=== PATIENT | male | born 1950 | race Caucasian/White ===

== ENCOUNTER 2023-08-07 11:51 | Emergency (ER) | payer MEDICARE, OTHER, SELFPAY ==
[2023-08-07 11:51] VITALS: BMI 27.1
[2023-08-07 11:53] VITALS: BP 141/75
--- NOTE | 2023-08-07 12:04 | EDRN ---
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 Pt states he spoke with a friend who urged him to
get vaccinated so 'so I dont '
--- NOTE | 2023-08-07 12:30 | ED.GENMED ---
History of Present Illness
General
Chief Complaint: Rabies
Source: patient
Exam Limitations: none
Time Seen by Provider: 08/07/23 11:59
Nursing documentation reviewed up to this point in time: agreed with
Travel History
Have you had any contact with someone who has COVID-19?: No
Do you have any symptoms of coronavirus? Fever > 100 degrees, chills, cough, shortness of breath, sore throat, loss of taste or smell, muscle aches, or headache?: No
History of Present Illness
History of Present Illness:
Patient is 73-year-old male who presents to the ER for evaluation. Patient reports over the past week they have had a bad problem in their house and has had multiple bats in his house. He denies any actual bite but is here for rabies
immunoglobulin and vaccine. He has no physical complaints.
Review of Systems
Review of Systems
Allergies reviewed?: Yes
All Other Systems: ROS reviewed and negative except as documented in HPI and ROS
Constitutional: Reports no symptoms
Respiratory: Reports no symptoms
Cardiac: Reports no symptoms
ABD/GI: Reports no symptoms
Musculoskeletal: Reports no symptoms
Skin: Reports no symptoms
Neurological: Reports no symptoms
Psychiatric: Reports no symptoms
Phy Exam
General Physical Exam
General Presentation: no apparent distress
General age: appears stated age
General Skin: warm and dry
General Habitus: normal
General Mental: alert
General Hydration: appears well hydrated
Neurological Exam
Neurological Exam: alert and oriented x3
Musculoskeletal Exam
Musculoskeletal Exam: full ROM
Skin Exam
Skin Exam: normal color and warm/dry
Psychiatric Exam
Psychiatric Exam: normal mood/affect
Course
Orders/Labs/Results
Orders:
Orders
08/07/23 12:35
Rabies Immune Globulin/Pf [HyperRAB] 1,814 unit IM NOW STA
08/07/23 12:45
Rabies Vaccine (Pcec)/Pf [Rabavert Rabies Vacc W-Diluent] 2.5 unit IM .ONCE ONE
Vital Signs
Initial and Last Documented VS:
Initial Vital Signs
Temp Pulse Resp BP Pulse Ox
98.6 F 60 18 141/75 98
08/07/23 11:53 08/07/23 11:53 08/07/23 11:53 08/07/23 11:53 08/07/23 11:53
Last Documented Vital Signs
Temp Pulse Resp BP Pulse Ox
98.6 F 60 18 141/75 98
08/07/23 11:53 08/07/23 11:53 08/07/23 11:53 08/07/23 11:53 08/07/23 11:53
MDM/Problems Addressed
MDM/Problems Addressed:
pt presented for rabies vaccine and immunoglobin no known injury
*Critical Care Note
Total Time (30-74mins, 75-104mins- exclusive of procedures): Not Applicable
ED Attending Note
-
Portions of this chart may have been created with voice recognition software.� Occasional wrong word or��sound alike� substitutions may have occurred due to the inherent limitations of voice recognition software.
Discharge Plan
Departure
Patient Disposition: Home (Routine Discharge)
Date of Disposition: 08/07/23
Time of Disposition: 13:29
Patient with high blood pressure during this ER visit?: Yes
Condition: Fair
Covid-19: Not Applicable
Discharge Problem:
encounter for rabies vaccine , Encounter for prophylactic administration of rabies immune globulin
Stand Alone Forms: Rabies Vaccine Post Exp Dosing
Activity Restrictions/Additional Instructions:
You were here in the ER today to receive rabies vaccine and rabies immunoglobulin. You will need to return 3, 7 and 14 for rabies vaccine.
For the vaccine that you are to receive on Friday please come back to the emergency department to receive this however for the next 2 doses you may go to the infusion center. You will be given a prescription to take with you to the infusion center.
Return if any worsening of symptoms
Interventions
Interventions:
*Risk Screen - Suicide Last Done: 08/07/23 11:53
*General Assessment Last Done: 08/07/23 11:53
*Neglect/Abuse Screening Last Done: 08/07/23 11:53
ED- Fall Risk Assessment Last Done: 08/07/23 12:02
*ED COVID-19 Vaccine History Last Done: 08/07/23 11:53
*Nursing Disposition Last Done: 08/07/23 13:31
Discharge Date and Time
Discharge Date/Time: 08/07/23 13:45
[2023-08-07] MEDS: RABAVERT RABIES VACC W-DILUENT 2.5 UNIT IM (13:09)
[2023-08-07] MEDS: HyperRAB 1814 UNIT IM (13:11)
== END 2023-08-07 13:45 | disposition home or self-care (01) ==
LOC: EMR 11:51
PROVIDERS: EMERGENCY PHYSICIAN Student in an Organized Health Care Education/Training Program; FAMILY PHYSICIAN Family Medicine
DX: Z20.3 Contact with and (suspected) exposure to rabies (principal); Z23 Encounter for immunization
CPT/HCPCS: 99282; 90471; 96372; 90375; 90675

== ENCOUNTER 2023-08-21 14:31 | Outpatient (RCR) | payer MEDICARE, OTHER, SELFPAY ==
[2023-08-11 15:08] VITALS: BP 124/66
[2023-08-11] MEDS: RABAVERT RABIES VACC W-DILUENT 2.5 UNIT IM (15:41)
[2023-08-14 15:10] VITALS: BP 137/72
[2023-08-14] MEDS: RABAVERT RABIES VACC W-DILUENT 2.5 UNIT IM (15:22)
[2023-08-21 14:45] VITALS: BP 132/74
[2023-08-21] MEDS: RABAVERT RABIES VACC W-DILUENT 2.5 UNIT IM (15:01)
== END 2023-08-22 09:42 | disposition home or self-care (01) ==
LOC: OID 14:31
PROVIDERS: ATTENDING PHYSICIAN Student in an Organized Health Care Education/Training Program; FAMILY PHYSICIAN Family Medicine
DX: Z20.3 Contact with and (suspected) exposure to rabies (principal); Z23 Encounter for immunization
CPT/HCPCS: 90471; 90675

== ENCOUNTER 2024-06-28 12:58 | Emergency (ER) | payer MEDICARE, OTHER, SELFPAY ==
[2024-06-28 13:08] VITALS: BP 149/85
[2024-06-28 13:32] LABS: % Basophils 0.2 % (0-2); % Eosinophils 3.5 % (0-6); % Immature Granulocytes 0.3 % (0-0.5); % Lymphocytes 18.2 % (20.5-51.1); % Monocytes 8.5 % (1.7-9.3); % Neutrophils 69.3 % (42.2-75.2); Absolute Eosinophils 0.4 10^3/uL (0-0.7); Absolute Lymphocytes 1.8 10^3/uL (1.2-3.4); Absolute Monocytes 0.8 10^3/uL (0.1-0.6); Absolute Neutrophils 6.9 10^3/uL (1.4-6.5); Hematocrit 39.4 % (39.0-52.0); Hemoglobin 13.4 g/dL (13.0-18.0); Mean Platelet Volume 7.9 fL (7.4-10.4); Nucleated Red Blood Cells % 0 % (-); Platelet Count 183 10^3/uL (130-400); Red Blood Cell Count 4.06 10^6/uL (4.70-6.10); Red Cell Dist. Width 11.9 % (11.5-14.5); White Blood Cell Count 9.9 10^3/uL (4.8-10.8)
[2024-06-28 13:59] LABS: ALT (SGPT) 27 U/L (0-50); AST (SGOT) 25 U/L (17-59); Albumin 4.6 g/dl (3.5-5.0); Alkaline Phosphatase 74 U/L (38-126); Blood Urea Nitrogen 13 mg/dl (9-20); Calcium 9.5 mg/dl (8.4-10.2); Carbon Dioxide 29 mmol/L (22-30); Chloride 99 mmol/L (98-107); Glucose 113 mg/dl (70-99); Lipase 94 U/L (23-300); Potassium 4.4 mmol/L (3.5-5.1); Sodium 136 mmol/L (135-145); Total Bilirubin 0.6 mg/dl (0.2-1.3); Total Protein 7.3 g/dl (6.3-8.2); eGFR > 60.00
[2024-06-28] MEDS: TORADOL 15 MG IV (15:45)
--- NOTE | 2024-06-28 15:46 | ED.GENMED ---
History of Present Illness
General
Chief Complaint: Abdominal Pain
Time Seen by Provider: 06/28/24 15:07
History of Present Illness
History of Present Illness:
73-year-old male without any significant past medical history presenting to the emergency department for left-sided abdominal pain. Patient reports symptoms started yesterday. Does note history of diverticulosis and 2 episodes of diverticulitis in
the past, only requiring oral antibiotics outpatient. He feels that the pain on this episode is more severe prior. Pain is worse with any type of movement. Patient has a medical background and has concern for peritoneal signs. Denies any changes
in stool. Denies nausea or vomiting. Denies chest pain, difficulty breathing, fever. Has history of kidney stones in the past, requiring ureteral surgery. Denies additional acute medical complaints
Phy Exam
Physical Exam
Physical Exam:
General: Well-appearing, no clinical signs of dehydration, nontoxic and in no acute distress
HEENT: protecting airway
Neck: appears supple
CV: Normal heart rate
Resp: No accessory muscle use, no increased work of breathing
Abd: Soft and non-distended, moderate tenderness to left lower quadrant with voluntary guarding, no rebound
Extremities: No deformities, no swelling
Neuro: alert, no focal neurologic deficit
: deferred
Rectal: deferred
Psych: Normal affect
Skin: Intact
Course
Orders/Labs/Results
Orders:
Orders
06/28/24 13:21
Complete Blood Count/With Diff Urgent
Comprehensive Metabolic Panel Urgent
Lipase Urgent
06/28/24 15:31
CT Abd/pelvis W Iv Cont Urgent
Comment:
Reason For Exam: LLQ pain, hx diverticulitis
Ketorolac [Toradol] 15 mg IV NOW STA
CR Chest - 2 Views Urgent
Comment:
Reason For Exam: r/o free air
06/28/24 15:52
Urinalysis Reflex To Culture Urgent
Date Specimen was Collected: 06/28/24
Time Specimen was Collected: 15:37
Urine Microscopic Reflex Cult Urgent
Urine Culture Urgent
TERESA Source: U
Specimen Description:
Date Specimen was Collected: 06/28/24
Time Specimen was Collected: 15:37
06/28/24 18:27
Amoxicillin 875 mg/Clav 125 mg [Augmentin 875 mg/125 mg] 1 tablet PO NOW STA
Abnormal Lab Results
06/28/24 06/28/24
13:21 15:52
RBC 4.06 L 10^6/uL
(4.70-6.10)
MCV 97.0 H fL
(80.0-94.0)
MCH 33.0 H pg
(27.0-31.0)
Absolute Neuts (auto) 6.9 H 10^3/uL
(1.4-6.5)
Absolute Monos (auto) 0.8 H 10^3/uL
(0.1-0.6)
Lymphocytes % 18.2 L %
(20.5-51.1)
Glucose 113 H mg/dl
(70-99)
Leukocyte Esterase Rfl 1+ A
(Negative)
Urine WBC (Reflex) 40-50 A /HPF
(0-5)
Urine Bacteria (Reflex) Few A
(Negative)
06/28/24 13:21
06/28/24 13:21
Vital Signs
Initial and Last Documented VS:
Initial Vital Signs
Pulse Resp BP Pulse Ox
81 18 149/85 96
06/28/24 13:08 06/28/24 13:08 06/28/24 13:08 06/28/24 13:08
Last Documented Vital Signs
Temp Pulse Resp BP Pulse Ox
98.8 F 81 16 149/85 96
06/28/24 13:14 06/28/24 13:08 06/28/24 15:57 06/28/24 13:08 06/28/24 13:08
MDM/Problems Addressed
MDM/Problems Addressed:
73-year-old male with history of diverticulitis presenting for left lower quadrant abdominal pain for 2 days. Vital signs on arrival are normal.
On exam, patient resting comfortably, no acute distress or discomfort. Patient afebrile, nontoxic. He does however have focal tenderness to the left lower quadrant with voluntary guarding. Concern for acute appendicitis, with possible looking
features given his exam. Patient is assessment, no leukocytosis. Plan for CT imaging. Toradol administered for pain. Patient with renal history as well, kidney stones, will obtain urinalysis
18:30 -urine without acute abnormality. CT is consistent with acute diverticulitis without complicating features. Patient would prefer to be treated with outpatient antibiotics. Will start on Augmentin. Otherwise feel stable for discharge.
Return precautions discussed and patient verbalized understanding
*Critical Care Note
Total Time (30-74mins, 75-104mins- exclusive of procedures): Not Applicable
ED Attending Note
-
Portions of this chart may have been created with voice recognition software.� Occasional wrong word or��sound alike� substitutions may have occurred due to the inherent limitations of voice recognition software.
Discharge Plan
Departure
Prescriptions:
No Action
lisinopril 20 mg Tablet
20 mg PO DAILY
Interventions
Interventions:
*Risk Screen - Suicide Last Done: 06/28/24 13:08
*General Assessment Last Done: 06/28/24 13:08
*Neglect/Abuse Screening Last Done: 06/28/24 13:08
ED- Fall Risk Assessment Last Done: 06/28/24 15:55
KB-Bfdooj-Bcfwzgarol Assessment Last Done: 06/28/24 15:55
Discharge Date and Time
Print Language: SAMMARINESE
[2024-06-28 15:55] VITALS: BMI 30.1
[2024-06-28 16:05] LABS: Urine Albumin Negative (Neg - Trace); Urine Bilirubin Negative (Negative); Urine Character Clear (Clear); Urine Color Yellow; Urine Glucose Negative (Negative); Urine Ketone Negative (Negative); Urine Leukocyte 1+ (Negative); Urine Nitrite Negative (Negative); Urine Occult Blood Negative (Negative); Urine Urobilinogen Negative (Neg - 1+)
[2024-06-28 16:52] LABS: Urine Bacteria Few (Negative); Urine Red Blood Cell 0-2 /HPF (0-2); Urine Squamous Cell 0-2 /LPF (Few); Urine White Cell 40-50 /HPF (0-5)
[2024-06-28] MEDS: AUGMENTIN 875 MG/125 MG 1 TABLET PO (18:50)
== END 2024-06-28 18:54 | disposition home or self-care (01) ==
LOC: EMR 12:58
PROVIDERS: Emergency Medicine; EMERGENCY PHYSICIAN Student in an Organized Health Care Education/Training Program; FAMILY PHYSICIAN Internal Medicine
DX: K57.32 Diverticulitis of large intestine without perforation or abscess without bleeding (principal); Z87.442 Personal history of urinary calculi
CPT/HCPCS: 96374; 99284; 71046; 74177; 80053; 81003; 81015; 83690; 85025; 87077; 87086; 87186; Q9967